=== PATIENT | male | born 1995 | race Caucasian/White ===

== ENCOUNTER 2017-02-06 20:29 | Emergency (ER) | payer OTHER ==
[~2017-02-06] VITALS: Ht 162.6 cm; Wt 59.1 kg
[2017-02-06 20:31] VITALS: BP_DIAS 75
[2017-02-06 21:24] LABS: BASOPHILS # (AUTO) 0.01 K/uL (0.00-0.20); BASOPHILS % (AUTO) 0.4 % (0.0-2.0); EOSINOPHILS # (AUTO) 0.04 K/uL (0.00-0.70); EOSINOPHILS % (AUTO) 1.09 % (1.0-6.0); HEMATOCRIT 42.6 % (41-53); HEMOGLOBIN 14.4 g/dL (13.5-17.5); LYMPHOCYTES # (AUTO) 1.1 K/uL (1.0-4.8); LYMPHOCYTES % (AUTO) 29.4 % (22.0-44.0); MEAN CORPUSCULAR HEMOGLOBIN 31.9 pg (26.0-34.0); MEAN CORPUSCULAR HGB CONC 33.7 G/dL (31.0-37.0); MEAN CORPUSCULAR VOLUME 95 fL (80-100); MONOCYTES # (AUTO) 0.7 K/uL (0.1-1.0); NEUTROPHILS # (AUTO) 1.8 K/uL (1.8-7.7); NEUTROPHILS % (AUTO) 49.2 % (40.0-70.0); PLATELET COUNT (AUTO) 210 K/uL (150-450); RED CELL DISTRIBUTION WIDTH 12.6 % (11.5-14.5); WHITE BLOOD COUNT (AUTO) 3.6 K/uL (4.5-11.0)
[2017-02-06 21:32] LABS: ANION GAP 7 mmol/L (8-16); CALCIUM, TOTAL 8.7 mg/dL (8.8-10.5); CARBON DIOXIDE 28 mmol/L (22-29); CHLORIDE 104 mmol/L (98-107); CREATININE 0.94 mg/dL (0.60-1.30); GLOMERULAR FILTR. RATE CALC > 60 mL/min (>60); POTASSIUM 3.6 mmol/L (3.5-5.1); SODIUM SERUM 139 mmol/L (136-145); UREA NITROGEN, BLOOD 9 mg/dL (7-18)
[2017-02-06 21:38] LABS: ALANINE AMINOTRANSFERASE 22 U/L (12-78); ALBUMIN 3.7 g/dL (3.4-5.0); ASPARTATE AMINOTRANSFERASE 18 U/L (15-37); BILIRUBIN,TOTAL 0.4 mg/dL (0.1-1.0); TOTAL PROTEIN, SERUM 6.9 g/dL (6.4-8.2)
[2017-02-06] MEDS ORDERED: MECLIZINE HCL 25 MG TABLET PO ONE (21:45)
[2017-02-06 22:12] LABS: RBC MORPHOLOGY COMMENT NORMAL RBC MORPH
[2017-02-06 22:30] VITALS: BP_SYST 117
[2017-02-06 22:51] LABS: APPEARANCE,URINE CLEAR (CLEAR); GLUCOSE, URINE (UA) NEGATIVE (NEGATIVE); KETONES,URINE TRACE mg/dL (NEGATIVE); LEUKOCYTE ESTERASE ,URINE NEGATIVE (NEGATIVE); OCCULT BLOOD,URINE TRACE (NEGATIVE); PROTEIN,URINE TRACE (NEGATIVE)
[2017-02-06 22:52] LABS: ADD UA MICROSCOPIC YES
[2017-02-06 23:04] LABS: SQUAMOUS EPITHELIAL CELL,UR Rare /LPF (None Seen); WBC,URINE 0-2 /HPF (0-5)
[2017-02-06 23:05] LABS: CALCIUM OXALATE CRYSTALS,UR Rare /LPF (None Seen)
== END 2017-02-06 22:35 | disposition home or self-care (01) ==
LOC: EMS 20:31
DX: R42 Dizziness and giddiness (principal); B34.9 Viral infection, unspecified; R51 Headache; R19.7 Diarrhea, unspecified
CPT/HCPCS: 93005; 99285

== ENCOUNTER 2017-07-21 00:16 | Emergency (ER) | payer OTHER ==
[~2017-07-21] VITALS: Ht 160 cm; Wt 59.1 kg
[2017-07-21 00:30] VITALS: BP 141/88
[2017-07-21 00:53] LABS: APPEARANCE,URINE TURBID (CLEAR); BILIRUBIN,URINE NEGATIVE (NEGATIVE); GLUCOSE, URINE (UA) NEGATIVE (NEGATIVE); KETONES,URINE TRACE mg/dL (NEGATIVE); LEUKOCYTE ESTERASE ,URINE MODERATE (NEGATIVE); NITRATE,URINE NEGATIVE (NEGATIVE); OCCULT BLOOD,URINE MODERATE (NEGATIVE); PROTEIN,URINE POS 1+ (NEGATIVE)
[2017-07-21 01:08] LABS: BACTERIA,URINE Few /HPF (None Seen); SQUAMOUS EPITHELIAL CELL,UR Rare /LPF (None Seen)
[2017-07-21] MEDS ORDERED: CefTRIAXone SODIUM 1 GM/VIAL IM ONE (01:15)
[2017-07-21] MEDS ORDERED: LIDOCAINE HCL/PF 1% 2 ML VIAL IM ONE (01:15)
[2017-07-21] MEDS ORDERED: AZITHROMYCIN 250 MG TABLET PO ONE (01:15)
== END 2017-07-21 01:35 | disposition home or self-care (01) ==
LOC: EMS 00:17
DX: N34.2 Other urethritis (principal)
CPT/HCPCS: 81001; 87086; 87491; 87591; 96372; 99284; J0696; J3490

== ENCOUNTER 2017-12-19 13:41 | Emergency (ER) | payer SELFPAY ==
[~2017-12-19] VITALS: Ht 162.6 cm; Wt 63.6 kg
[2017-12-19] MEDS ORDERED: AZITHROMYCIN 250 MG TABLET PO ONE (14:30)
[2017-12-19] MEDS ORDERED: CefTRIAXone SODIUM 1 GM/VIAL IM ONE (14:30)
[2017-12-19 14:56] VITALS: BP 122/69
== END 2017-12-19 14:59 | disposition home or self-care (01) ==
LOC: EMS 13:45
DX: A74.9 Chlamydial infection, unspecified (principal)
CPT/HCPCS: 96372; 99283; J0696

== ENCOUNTER 2018-02-22 17:29 | Emergency (ER) | payer SELFPAY ==
[~2018-02-22] VITALS: Ht 162.6 cm; Wt 63.6 kg
[2018-02-22] MEDS ORDERED: LIDOCAINE HCL/PF 1% 2 ML VIAL IM ONE (19:15)
[2018-02-22] MEDS ORDERED: AZITHROMYCIN 250 MG TABLET PO ONE (19:15)
[2018-02-22] MEDS ORDERED: CefTRIAXone SODIUM 1 GM/VIAL IM ONE (19:15)
[2018-02-22 20:05] VITALS: BP 122/66
== END 2018-02-22 20:08 | disposition home or self-care (01) ==
LOC: EMS 17:30
DX: A54.9 Gonococcal infection, unspecified (principal)
CPT/HCPCS: 96372; 99283; J0696; J3490

== ENCOUNTER 2023-02-28 00:01 | Emergency (ER) | payer MEDICAID ==
[~2023-02-28] VITALS: Ht 162.6 cm; Wt 72.7 kg
[2023-02-28 00:18] VITALS: TEMP 100
[2023-02-28] MEDS ORDERED: PERTUSS(ACELL),DIPH,TET VAC/PF 0.5 ML SYRINGE IM. ONE (00:30)
[2023-02-28] MEDS ORDERED: LIDOCAINE 1% 10 ML VIAL SQ ONE (00:30)
[2023-02-28 00:48] VITALS: BP 140/70; PULSE 77; RESP 20
[2023-02-28] MEDS ORDERED: HYDROCODONE/ACETAMINOPHEN 5-325 MG TABLET PO ONE (01:30)
[2023-02-28] MEDS ORDERED: CEPHALEXIN MONOHYDRATE 500 MG CAPSULE PO ONE (01:30)
[2023-02-28] MEDS ORDERED: CEPH-558 PO (02:07)
== END 2023-02-28 02:39 | disposition home or self-care (01) ==
LOC: EMS 00:01
DX: S41.032A Puncture wound without foreign body of left shoulder, initial encounter (principal); S41.012A Laceration without foreign body of left shoulder, initial encounter; W45.8XXA Other foreign body or object entering through skin, initial encounter; Y93.89 Activity, other specified; Y92.89 Other specified places as the place of occurrence of the external cause; Y99.8 Other external cause status
CPT/HCPCS: 99284; 71045; 73030; 90471; 12001; J3490